=== PATIENT | female | born 1995 | race Caucasian/White ===

== ENCOUNTER 2017-02-13 16:40 | Emergency (ER) | payer BC ==
[~2017-02-13] VITALS: Ht 157.5 cm; Wt 60.0 kg
[2017-02-13] MEDS ORDERED: ZOFRAN4 MG PO (22:01)
[2017-02-13] MEDS ORDERED: CEFDINIR300 MG PO (22:01)
[2017-02-13] MEDS ORDERED: MECLIZINE HCL25 MG PO (22:01)
[2017-02-13 22:20] VITALS: BP 111/68
== END 2017-02-13 22:21 | disposition home or self-care (01) ==
LOC: EME 16:40
DX: H92.02 Otalgia, left ear (principal); R42 Dizziness and giddiness; H91.90 Unspecified hearing loss, unspecified ear
CPT/HCPCS: 99281; 99284; J2405